=== PATIENT | female | born 1980 | race Asian ===

== ENCOUNTER 2019-06-30 05:03 | Day surgery (SDC) | payer OTHER ==
[2019-06-26 18:55] VITALS: BMI 29.0
--- NOTE | 2019-06-30 08:09 | HP ---
History & Physical Update - History History: No Change - Physical Physical: No Change - Assessment Assessment: No Change - Plan Plan: No Change (No change in HP)
[2019-06-30] MEDS ORDERED: IBUPROFEN 400 MG TABLET (FP) PO PRN (08:13)
[2019-06-30] MEDS ORDERED: ACETAMINOPHEN 325 MG TABLET (FP) PO PRN (08:13)
[2019-06-30] MEDS ORDERED: LACTATED RINGERS SOLUTION 1,000 ML IV SCH (14:30)
[2019-06-30] MEDS ORDERED: ONDANSETRON 4 MG/2 ML VIAL IVPUSH PRN (14:30)
[2019-06-30] MEDS ORDERED: oxyCODONE HCL 5 MG TABLET PO PRN ×2 (14:30)
--- NOTE | 2019-06-30 14:40 | OP ---
Operative Note - Note: Operative Date: 06/30/19 Pre-Operative Diagnosis: Endometrial polyp. menorrhagia Operation: Hysteroscopic myomectomy. Suction DC Post-Operative Diagnosis: Same as Pre-op Surgeon: Vickie Norman Anesthesia: General Estimated Blood Loss (mls): 10 Operative Report Dictated: Yes
[2019-06-30] MEDS ORDERED: MIDAZOLAM HCL 2 MG/2 ML SINGLE DOSE VIAL ONE (14:50)
[2019-06-30 18:48] VITALS: BP 110/64; PULSE 85; TEMP 97.9
--- NOTE | 2019-07-01 12:54 | OP ---
DATE OF OPERATION: 06/30/2019 PREOPERATIVE DIAGNOSIS: Endometrial polyp and menorrhagia. OPERATION: Hysteroscopic myomectomy, suction dilation and curettage. POSTOPERATIVE DIAGNOSIS: Endometrial polyp and menorrhagia. SURGEON: Vickie Norman MD ANESTHESIA: General. PROCEDURE: Patient was taken to the operating room, placed in dorsal lithotomy position, prepped and draped in the usual sterile fashion. A time-out was performed in accordance with hospital regulation. Speculum was placed in the vagina. Anterior lip of the cervix was grasped with a single-tooth tenaculum. Cervix then dilated to accommodate the operative hysteroscope. Operative hysteroscope was inserted. Visualization revealed endometrial polyps. Cautery and cutting of the endometrial polyps was then done followed by suction dilation and curettage. Specimen was submitted to Pathology. All instruments were then removed. Patient tolerated procedure well. Estimated blood loss was 20 mL. VICKIE NORMAN M.D. [id number]
--- NOTE | 2019-07-02 19:16 | PATH ---
Surgical Pathology Report Patient Name: NEHEMIAS NEW [facility]. Rec. #: [id number] /Age/Gender: 1980 (Age: 39) / F Account: [id number] Location: [facility] Taken: 06/30/2019 Received: 07/01/2019 Reported: 07/02/2019 Physicians: Vickie Norman M.D. Specimen(s) Received ENDOMETRIAL POLYP AND CURETTINGS Clinical History Endometrial polyp, menorrhagia Final Diagnosis ENDOMETRIAL POLYPS AND FRAGMENTS: ENDOMETRIAL POLYP. SEPARATE SECRETORY TYPE ENDOMETRIUM. Electronically Signed Levon Lopez M.D. Gross Description Received in formalin labeled "endometrial polyps and curettings," is a 2.6 x 2.1 x 0.3 cm aggregate of vincent soft tissue fragments. The formalin is filtered and the specimen is entirely submitted in one cassette. DL/07/01/2019 saudi/07/01/2019
== END 2019-06-30 18:45 | disposition home or self-care (01) ==
LOC: JASU-SURG 05:03
PROVIDERS: ATTEND Obstetrics & Gynecology
PROC: 0UB98ZX Excision of Uterus, Via Natural or Artificial Opening Endoscopic, Diagnostic (ICD-10-PCS; principal; 2019-06-30 12:15)
PROC: 0UDB8ZX Extraction of Endometrium, Via Natural or Artificial Opening Endoscopic, Diagnostic (ICD-10-PCS; 2019-06-30 12:15)
DX: N84.0 Polyp of corpus uteri (principal); N92.0 Excessive and frequent menstruation with regular cycle
CPT/HCPCS: 84703; 88305-TC; 94760

== ENCOUNTER 2021-09-01 09:07 | Emergency (ER) | payer OTHER ==
[2021-09-01 09:18] VITALS: BP 122/81; PULSE 89; TEMP 97.8; BMI 27.1
== END 2021-09-01 10:07 | disposition home or self-care (01) ==
LOC: JER 09:07
DX: J04.0 Acute laryngitis (principal)
CPT/HCPCS: 87070; 99283-25